=== PATIENT | male | born 1990 | race Caucasian/White ===

== ENCOUNTER 2020-04-05 01:44 | Emergency (ER) | payer OTHER ==
[2020-04-05 01:58] VITALS: BP 152/101
[2020-04-05] MEDS ORDERED: LIDOCAINE 1% 2 ML VIAL SUBQ STA (02:41)
--- NOTE | 2020-04-05 02:41 | ED Physician Documentation ---
PD HPI Fall - Stated complaint Stated Complaint: FACE LAC - Chief complaint Chief Complaint: Laceration - History obtained from History obtained from: Patient - History of Present Illness Mechanism of injury: Other (see narrative below) Fall distance: Standing position (down stairs) Where injury occurred: A house / apartment Timing - onset: How many hours ago (approximately 1 hour [employer]) Injury(ies) location: Face Pain level now: 6 Associated symptoms: No: LOC, AMS, Neck pain Recently seen: Not recently seen - Additional information Additional information: patient is visiting [facility] from [place]. He is staying with a friend. Approximately 1 hour [employer], patient was walking to bathroom to brush his teeth; he was unfamiliar with the layout of the house and fell down steps, striking the left side of his face on the edge of a stair, sustaining laceration below left eye. Denies LOC, denies other injury. He is UTD on tetanus (last booster was approximately 2 years ago). Review of Systems Eyes: reports: Decreased vision (left eye blurry vision). denies: Loss of vision Nose: denies: Epistaxis Skin: reports: Laceration (s) Musculoskeletal: denies: Neck pain, Back pain, Extremity pain Neurologic: reports: Head injury. denies: Headache, LOC PD PAST MEDICAL HISTORY - Past Medical History Past Medical History: Yes Psych: ADD/ADHD - Allergies Allergies/Adverse Reactions: Allergies Allergy/AdvReac Type Severity Reaction Status Date / Time No Known Drug Allergies Allergy Verified 04/05/20 03:33 PD ED PE NORMAL - Vitals Vital signs reviewed: Yes - General General: Alert and oriented X 3, No acute distress, Well developed/nourished - HEENT HEENT: PERRL, EOMI PD ED PE EXPANDED - HEENT HEENT: PERRL, EOMI HEENT Visual: 1 - laceration (2 cm laceration without bony tenderness) - Eyes Eyes: Nl conjunctiva/sclera. No: Hyphema Results - Vitals Vitals: Vital Signs - 24 hr 04/05/20 01:49 Temperature 36.2 C L Heart Rate 120 H Respiratory 18 Rate Blood Pressure 152/101 H O2 Saturation 97 Oxygen O2 Source Room air PD MEDICAL DECISION MAKING - ED course Complexity details: considered differential, d/w patient ED course: During initial evaluation, patient was c/o left eye blurred vision. This immediately and completely resolved with removal (using sterile cotton swab) of mucous strand that was on his cornea. We discussed repair of his laceration and he was agreeable to allowing me to repair the laceration. The upper margin of the laceration runs immediately below the rim of the lower lid. This margin was clear and accessible when patient's eye was open but would be obscured with eye closed. Provided the patient was to be alert, cooperative, and able to keep his eye open aside from blinking, the wound is appropriate for ED repair. After tending to other patients in ED, I set up equipment for the procedure. Patient is sleeping and lying left lateral decubitus position. ED RN and I asked patient several times to reposition in supine position. He would do so briefly before again turning onto his left side. Patient again reminded to lie supine and I then donned sterile gloves and placed sterile drape. He then asked to use the bathroom. I explained that I was just about to begin the procedure and asked that he wait until repair completed. He insists on using bathroom. I removed the drape and my gloves, lowered bed, and patient went to the bathroom. I tended to other patients until he was again ready to proceed. I donned new gloves and as I was drawing up the lidocaine, I asked the ED RN for a 30g needle. Patient asked what this means, and when I explain it to him, he asks me why I don't have the proper equipment and why the ED RN was unable to locate a 30g needle. Attempting to explain further was met with more expression from patient of doubt regarding my ability to perform the procedure and distrust when I attempt to reassure him that appropriate equipment is being used. ED RN was able to provide an insulin syringe with 29g needle. I instilled lidocaine into the syringe. Sterile drape placed and site prepped with chlorhexadine. I asked patient to keep his eyes open to allow me to visualize the margins of the wound. He says he is tired and will try to sleep through the procedure. I had already discussed with him the need to have him keep his eye open (blinking as needed but otherwise keeping eyes open) and I reminded him that this was a critical part of the success of the repair. He complied and I went to locally infiltrate the wound margins. Unfortunately, as soon as the needle was inserted, patient pulled away. I had not yet injected any lidocaine. He asked if I had finished the procedure and I told him I had not even started beyond just inserting the tip of the needle. At this point I explained to him that I was no longer comfortable attempting repair. I again explained to him that I would be able to perform the repair provided he is calm, cooperative, and able to follow simple instruction such as holding still and keeping his left eye open except to blink. I explained to him that I would need to transfer him to another hospital where a specialist could perform the repair (such as an op hthalmologist, plastic surgeon, or OMFS). Patient was very angry, says he had been told this hospital "always sends everyone to another hospital". I spoke with [facility] ED MD on duty to ascertain whether appropriate services would be available at their facility; he says such patient typically require transfer to [facility] or [facility]. ED RN relayed this information to patient (patient has repeatedly and vocally said he does not want me to be involved in his care any more). He initially refuses transfer but does not offer alternative plan. He eventually relented and I thus had PHARMACY SERVICES DIRECTOR place call to [facility] transfer center. Patient subsequently left A prior to the return call from .. Departure - Departure Disposition: 07 Against Medical Advice Clinical Impression: Laceration Condition: Good Discharge Date/Time: 04/05/20 05:38
== END 2020-04-05 05:38 | disposition left against medical advice (07) ==
LOC: ED 01:44
DX: S01.112A Laceration without foreign body of left eyelid and periocular area, initial encounter (principal); W10.8XXA Fall (on) (from) other stairs and steps, initial encounter; Y93.01 Activity, walking, marching and hiking; Y92.009 Unspecified place in unspecified non-institutional (private) residence as the place of occurrence of the external cause; Z53.29 Procedure and treatment not carried out because of patient's decision for other reasons
CPT/HCPCS: 99281; 99282